=== PATIENT | male | born 2000 | race Caucasian/White ===

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

== ENCOUNTER 2021-06-09 12:45 | Emergency (ER) | payer MEDICAID ==
[~2021-06-09] VITALS: Ht 172.7 cm; Wt 84.1 kg
[~2021-06-09 12:45] MED LIST changes: +ALBU8.5H17 IH; -ALBU8.5H8 IH
[2021-06-09 13:19] VITALS: BP 142/76
[2021-06-09] MEDS ORDERED: PERM60CR19 TP (13:41)
== END 2021-06-09 14:52 | disposition home or self-care (01) ==
LOC: ER 12:46
DX: B86 Scabies (principal); Z79.899 Other long term (current) drug therapy; Z86.14 Personal history of Methicillin resistant Staphylococcus aureus infection
CPT/HCPCS: 99283